=== PATIENT | female | born 1960 | race Caucasian/White ===

== ENCOUNTER 2016-08-09 21:32 | Emergency (ER) | payer OTHER ==
[2016-08-09 21:44] VITALS: BP 153/82
[2016-08-10] MEDS ORDERED: Acetaminophen/Butalbital/Caffeine 325-50-40 MG Tab PO STA (00:05)
--- NOTE | 2016-08-10 00:12 | EDM.PDOC ---
ED HPI HEADACHE COMPLAINT - General Chief Complaint: Neurological Problem Stated Complaint: HEADACHE Time Seen by Provider: 08/09/16 23:41 Source of Information: Reports: Patient, Family (), RN notes reviewed History Limitations: Reports: No limitations - History of Present Illness INITIAL COMMENTS - FREE TEXT/NARRATIVE: The patient states that she developed a headache felt from her forehead, down her face, on and off today, but that it became severe around 19:00 tonight. It is throbbing in character. She has no nausea or vomiting, no photophobia or phonophobia, no visual changes, and no neurologic symptoms, such as tingling, numbness, or weakness. No prior similar headaches. She relates that she was diagnosed with a sinus infection at the [facility] in clinic on 07/23/2016. She was treated with Augmentin for 10 days, and took Mucinex and an [id number] herbal nasal spray called Zylotol. - Related Data Allergies/ADRs: Allergies Allergy/AdvReac Type Severity Reaction Status Date / Time No Known Allergies Allergy Verified 08/09/16 21:40 Home Meds: Home Meds Escitalopram [Lexapro] 20 mg PO DAILY 10/14/13 [History] buPROPion [Wellbutrin] 150 mg PO DAILY 10/14/13 [History] Carisoprodol [Soma] 350 mg PO BEDTIME PRN 03/02/16 [History] Cholecalciferol (Vitamin D3) [Vitamin D3] 2,000 units PO DAILY 03/02/16 [History ] [place]-3 Fatty Acids [[place]ita-3] 2,000 mg PO DAILY 03/02/16 [History] Vitamin B Complex [B Complex] 1 tab PO DAILY 03/02/16 [History] Vitamin E 400 units PO DAILY 03/02/16 [History] Ascorbic Acid [Vitamin C] 1,000 mg PO DAILY 08/09/16 [History] Cetirizine [ZyrTEC] 10 mg PO DAILY 08/09/16 [History] Magnesium Citrate 100 mg PO DAILY 08/09/16 [History] Orphenadrine [Norflex] 1 tab PO Q12H #20 tab.er 08/10/16 [Rx] Past Medical History Gastrointestinal History: Reports: Colon polyp (tubular adenoma) Neurological History: Reports: Other (see below) (Sciatica) Psychiatric History: Reports: Anxiety, Depression - Past Surgical History HEENT Surgical History: Reports: Tonsillectomy GI Surgical History: Reports: Appendectomy, Colonoscopy Female Surgical History: Reports: section (x 2), D&C (x 1) Neurological Surgical History: Reports: C-Spine (ACDF) Musculoskeletal Surgical History: Reports: Other (see below) (Right bunionectomy ) Social & Family History - Tobacco Use Smoking Status *Q: Never Smoker Second Hand Smoke Exposure: No - Alcohol Use Alcohol Use History: Yes Days Per Week of Alcohol Use: 7 Number of Drinks Per Day: 1 Total Drinks Per Week: 7 Alcohol Use Frequency: Socially - Recreational Drug Use Recreational Drug Use: No - Living Situation & Occupation Living situation: Reports: , with spouse, with family (3 kids) 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) ED ROS GENERAL - Review of Systems Review Of Systems: See Below Constitutional: Reports: no symptoms HEENT: Reports: Sinus problem (as per the HPI) Respiratory: Reports: No Symptoms Cardiovascular: Reports: No symptoms Endocrine: Reports: no symptoms GI/Abdominal: Reports: No symptoms : Reports: no symptoms Musculoskeletal: Reports: no symptoms Skin: Reports: no symptoms Neurological: Reports: No Symptoms Psychiatric: Reports: No symptoms Hematologic/Lymphatic: Reports: no symptoms Immunologic: Reports: no symptoms - Physical Exam Exam: See Below Exam Limited By: No limitations General Appearance: alert, WD/WN, no apparent distress Eye Exam: bilateral eye: EOMI, normal inspection, PERRL Ears: normal external exam, normal canal, hearing grossly normal, normal TMs Nose: normal inspection, no blood, other (Mild bilateral nasal mucosal edema. No purulent drainage.) Throat/Mouth: Normal inspection, Normal lips, Normal teeth, Normal gums, Normal oropharynx, Normal voice, No airway compromise Head Exam: atraumatic, normocephalic, scalp tenderness (At the forehead, and at the base of the neck only. Nontender elsewhere.). No: facial swelling, facial tenderness, sinus tenderness Neck: normal inspection, supple, non-tender, full range of motion Respiratory/Chest: no respiratory distress, lungs clear, normal breath sounds, no accessory muscle use, chest non-tender Cardiovascular: normal peripheral pulses, regular rate, rhythm, no edema, no gallop, no JVD, no murmur, no rub GI/Abdominal: normal bowel sounds, soft, non tender, no organomegaly, no distention, no abnormal bruit, no mass Neuro Exam (Abbreviated): alert, oriented, normal cognition, no motor/sensory deficits Back Exam: normal inspection, full range of motion, NT Extremities: normal inspection, normal range of motion, non-tender, no pedal edema, normal capillary refill Psychiatric: normal affect, anxious Skin Exam: Warm, Dry, Intact, Normal color, No rash Course - Vital Signs Last Recorded V/S: Last Vital Signs Temp Pulse 57 L 08/09/16 21:40 Resp 16 08/09/16 21:40 BP 153/82 H 08/09/16 21:40 Pulse Ox 100 08/09/16 21:40 - Orders/Labs/Meds Orders: Active Orders 24 hr Category Date Time Status Head wo Cont [CT] Stat Exams 08/09/16 22:08 Taken Labs: Laboratory Tests 08/10/16 08/10/16 Range/Units 00:18 00:18 WBC 5.11 (3.98-10.04) K/mm3 RBC 4.03 (3.98-5.22) M/mm3 Hgb 12.5 (11.2-15.7) gm/L Hct 36.7 (34.1-44.9) % MCV 91.1 (79.4-94.8) fl MCH 31.0 (25.6-32.2) pg MCHC 34.1 (32.2-35.5) g/dl RDW Std Deviation 41.4 (36.4-46.3) fL Plt Count 177 L (182-369) K/mm3 MPV 10.3 (9.4-12.3) fl Neutrophils % (Manual) 75 H (40-60) % Band Neutrophils % 3 (0-10) % Lymphocytes % (Manual) 16 L (20-40) % Atypical Lymphs % 0 % Monocytes % (Manual) 5 (2-10) % Eosinophils % (Manual) 1 (0.7-5.8) % Basophils % (Manual) 0 L (0.1-1.2) Platelet Estimate Decreased Plt Morphology Comment Normal RBC Morph Comment Normal Sodium 138 (136-145) mEq/L Potassium 4.0 (3.5-5.1) mEq/L Chloride 103 (98-107) mEq/L Carbon Dioxide 25 (21-32) mEq/L Anion Gap 14.0 (5-15) BUN 15 (7-18) mg/dL Creatinine 0.8 (0.55-1.02) mg/dL Est Cr Clr Drug Dosing 79.08 mL/min Estimated GFR (MDRD) > 60 (>60) mL/min BUN/Creatinine Ratio 18.8 H (14-18) Glucose 117 H (74-106) mg/dL Calcium 9.0 (8.5-10.1) mg/dL Total Bilirubin 0.3 (0.2-1.0) mg/dL AST 19 (15-37) U/L ALT 23 (14-59) U/L Alkaline Phosphatase 45 L (46-116) U/L C-Reactive Protein < 0.2 (<1.0) mg/dL Total Protein 7.0 (6.4-8.2) g/dl Albumin 4.0 (3.4-5.0) g/dl Globulin 3.0 gm/dL Albumin/Globulin Ratio 1.3 (1-2) Meds: Medications Discontinued Medications Generic Name Dose Route Start Last Admin Trade Name Freq PRN Reason Stop Dose Admin Acetaminophen/Butalbital/Caffeine 2 tab 08/10/16 00:05 08/10/16 00:15 Fioricet 325-50-40 Mg PO 08/10/16 00:06 2 tab ONETIME STA Administration Orphenadrine Citrate 100 mg 08/10/16 01:59 08/10/16 02:12 Norflex PO 08/10/16 02:00 100 mg ONETIME STA Administration - Radiology Interpretation Free Text/Narrative:: CT of the head without contrast is read by virtual radiology as "No acute intracranial process." Also mentioned is "Sinuses: Unremarkable as visualized. No acute sinusitis." - Re-Assessments/Exams Free Text/Narrative Re-Assessment/Exam: 08/10/16 00:10 The patient's headache appears to be a tension-type headache. She has no symptoms consistent with a migraine-type headache, and while her history is concerning for a sinus-type headache, her physical exam is not consistent with it, and, further, the CT scan of her head finds no evidence of sinusitis. I have ordered blood work to look for evidence of inflammation, and 2 tablets of Fioricet. Of note, the patient's appears to be upset about the wait time. 08/10/16 01:57 Test results discussed with the patient. The blood work does not show any suggestion of infection or inflammation. As above, I suspect that the patient is suffering from a tension-type headache. She reports some improvement in her symptoms following Fioricet. I'm also going to prescribe Norflex, to see if that helps. Departure - Departure Time of Disposition: 01:58 Disposition: Home, Self-Care 01 Condition: fair Clinical Impression: Tension type headache Prescriptions: Orphenadrine [Norflex] 1 tab PO Q12H #20 tab.er Instructions: Tension Headache, [id number] Referrals: Laura Boyd, [facility] [employer] [Primary Care Provider] - Forms: ED Department Discharge Additional Instructions: You were seen in the emergency room tonight for a severe frontal headache. Workup in the ER included blood work and a CT scan of your head. Your entire workup was normal. There is no suggestion of an infection or inflammation. There is no bleeding your head. You do not have sinusitis or a sinus infection. Your symptoms are MOST LIKELY due to a tension-type headache. You have been started on the muscle relaxant Norflex. Take one tablet every 12 hours, as prescribed. You may also take [id number] ibuprofen 2-3 tablets (400-600 mg) every 8 hours, with food, as needed for discomfort. If you are not having significant relief within 2 days, please followup with your PCP, Laura Boyd. If any other problems, please do not hesitate to return to the ER.
[2016-08-10] MEDS ORDERED: Orphenadrine 100 MG Tab.ER PO STA (01:59)
--- NOTE | 2016-08-10 08:18 | CT ---
Head CT Technique: Multiple axial sections through the brain were obtained. Intravenous contrast was not utilized. Comparison: Previous head CT study of 10/14/13 is available. Findings: Several old lacunar infarcts are noted within the basal ganglia. No other abnormal parenchymal densities are seen. No evidence of intracranial hemorrhage. No midline shift or mass effect is seen. Bone window settings were reviewed which show no discrete calvarial abnormality. Visualized sinuses are clear. Impression: 1. Several old lacunar infarcts within the left basal ganglia. 2. No acute intracranial abnormality is seen. Diagnostic code #2
== END 2016-08-10 02:15 | disposition home or self-care (01) ==
LOC: JD.ED 21:32
DX: G44.209 Tension-type headache, unspecified, not intractable (principal); F41.9 Anxiety disorder, unspecified; F32.9 Major depressive disorder, single episode, unspecified; Z79.899 Other long term (current) drug therapy
CPT/HCPCS: 36415; 70450; 70450-26; 80053; 85025; 86140; 99283; 99284-25; A9270; A9270-GY

== ENCOUNTER → 2020-09-18 | Day surgery (SDC) | payer OTHER ==
[~2020-09-18] MED LIST: Lactated Ringers 1,000 ML IV SCH; Lidocaine 1% 4 ML ONE; Lidocaine 1%/Sod Bicarbonate in NS 8.4% 1 ML Syringe IDERM PRN; Propofol 200 MG/20 ML SDV ONE; Sodium Chloride 0.9% 10 ML Syringe FLUSH PRN
--- NOTE | 2020-09-18 07:38 | PCM.PREANE ---
Preanesthetic Assessment - Procedure Proposed Procedure: EGD - Anesthesia/Transfusion/Family Hx Anesthesia History: Prior Anesthesia Without Reaction Family History of Anesthesia Reaction: No Transfusion History: No Prior Transfusion(s) Intubation History: Unknown - Review of Systems General: No Symptoms Pulmonary: No Symptoms Cardiovascular: No Symptoms Gastrointestinal: Other (IBS ) Neurological: No Symptoms Other: Reports: Depression, Anxiety - Physical Assessment NPO Status Date: 09/17/20 NPO Status Time: 22:00 Height: 1.7 m Weight: 67 kg ASA Class: 3 Mental Status: Alert & Oriented x3 Airway Class: Mallampati = 1 Dentition: Reports: Missing Tooth/Teeth (right bottom ) Thyro-Mental Finger Breadths: 3 Mouth Opening Finger Breadths: 5 ROM/Head Extension: Full Lungs: Clear to Auscultation, Normal Respiratory Effort Cardiovascular: Regular Rate, Regular Rhythm - Allergies Allergies/Adverse Reactions: Allergies Allergy/AdvReac Type Severity Reaction Status Date / Time No Known Allergies Allergy Verified 09/17/20 10:37 - Blood Blood Available: No - Anesthesia Plan Pre-Op Medication Ordered: None - Acknowledgements Anesthesia Type Planned: MAC Pt an Appropriate Candidate for the Planned Anesthesia: Yes Alternatives and Risks of Anesthesia Discussed w Pt/Guardian: Yes Pt/Guardian Understands and Agrees with Anesthesia Plan: Yes PreAnesthesia Questionnaire HEENT History: Reports: Allergic Rhinitis, Impaired Vision Other HEENT History: Wears glasses Cardiovascular History: Reports: None Respiratory History: Reports: None Gastrointestinal History: Reports: Colon Polyp, Other (See Below) Other Gastrointestinal History: tubular adenoma Genitourinary History: Reports: None 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 OB/BYN History: Other Musculoskeletal History: muscle spasms, left shoulder pain, myalgia, trapezius strain, bunion, muscle spasm Neurological History: Psychiatric History: Reports: Anxiety, Depression, Other (See Below) Other Psychiatric History: ETOH abx Endocrine/Metabolic History: Reports: None Hematologic History: Reports: Other (See Below) Other Hematologic History: abnormal WBC Immunologic History: Reports: None Oncologic (Cancer) History: Reports: Colon Other Oncologic History: tubular adenoma Dermatologic History: Reports: Other (See Below) Other Dermatologic History: atypical pigmented skin lesion - Infectious Disease History Infectious Disease History: Reports: None - Past Surgical History HEENT Surgical History: Reports: Tonsillectomy Cardiovascular Surgical History: Reports: None Respiratory Surgical History: Reports: None GI Surgical History: Reports: Appendectomy, Colonoscopy Female Surgical History: Reports: Section, D&C Male Surgical History: Reports: None Endocrine Surgical History: Reports: None Neurological Surgical History: Reports: C-Spine, Other (See Below) Other Neurological Surgeries/Procedures: neck fracture with surgery Musculoskeletal Surgical History: Reports: Other (See Below) Other Musculoskeletal Surgeries/Procedures:: foot surgery, neck surgery Oncologic Surgical History: Reports: None Dermatological Surgical History: Reports: None - SUBSTANCE USE Tobacco Use Status *Q: Never Tobacco User Days Per Week of Alcohol Use: 7 Number of Drinks Per Day: 2 Total Drinks Per Week: 14 Recreational Drug Use History: No - HOME MEDS Home Medications: Home Meds Escitalopram [Lexapro] 20 mg PO DAILY 10/14/13 [History] Carisoprodol [Soma] 350 mg PO QID PRN 03/02/16 [History] Cholecalciferol (Vitamin D3) [Vitamin D3] 2,000 units PO DAILY 03/02/16 [History] Vitamin B Complex [B Complex] 1 tab PO DAILY 03/02/16 [History] Ascorbic Acid [Vitamin C] 500 mg PO DAILY 08/09/16 [History] Fish Oil/[place]-3 Fatty Acids [Fish Oil 1,000 MG] 1 gm PO DAILY 09/17/20 [History] Vitamin E 100 unit PO DAILY 09/17/20 [History] buPROPion HCL [Wellbutrin Xl] 150 mg PO DAILY 09/17/20 [History] buPROPion HCL [Wellbutrin Xl] 300 mg PO DAILY 09/17/20 [History] - CURRENT (IN HOUSE) MEDS Current Meds: Current Medications Lactated Ringer's (Ringers, Lactated) 1,000 mls @ 125 mls/hr IV ASDIRECTED BARB Stop: 09/18/20 23:00 Lidocaine/Sodium Bicarbonate (Lidocaine 1%/Sod Bicarbonate In Ns 8.4% 1 Ml Syringe) 0.25 ml IDERM ONETIME PRN PRN Reason: Prior to IV Start Stop: 09/18/20 18:00 Sodium Chloride (Sodium Chloride 0.9% 10 Ml Syringe) 10 ml FLUSH ASDIRECTED PRN PRN Reason: Keep Vein Open Stop: 09/18/20 18:00
--- NOTE | 2020-09-18 08:08 | PCM.PRNOTE ---
- Free Text/Narrative Note: Date: 09/18/2020 Procedure: diagnostic esophagogastroduodenoscopy Indication: bloating Endoscopist: Elliot Rahman MD Findings: no visible abnormalities. Biopsies of duodenal, antral, and esophageal mucosa obtained with cold biopsy forceps. Detailed Report: The patient was taken to the endoscopy suite and placed in left lateral decubitus position. Timeout was performed and monitored anesthesia care was initiated. A bite-block was placed, and the endoscope was inserted into the mouth. The scope was advanced to the second portion of the duodenum with ease. Duodenal mucosa appeared normal. A sample of duodenal mucosa was obtained with cold forceps. The scope was then withdrawn into the stomach. The pyloric channel appeared wide, but was otherwise unremarkable. A biopsy of gastric antral mucosa was obtained. The gastric mucosa appeared normal, there was no lesion at the incisura. On retroflexion, no hiatal hernia was appreciated. The scope was withdrawn into the distal esophagus. The Z-line appeared normal. Biopsies were obtained near the gastroesophageal junction and a bit more proximally to sample esophageal mucosa. Air was suctioned from the stomach prior to withdrawal of the scope. The patient tolerated the procedure well.
--- NOTE | 2020-09-18 08:18 | PCM48HPAN ---
Post Anesthesia Note - EVALUATION WITHIN 48HRS OF ANESTHETIC Vital Signs in Normal Range: Yes Patient Participated in Evaluation: Yes Respiratory Function Stable: Yes Airway Patent: Yes Cardiovascular Function Stable: Yes Hydration Status Stable: Yes Pain Control Satisfactory: Yes Nausea and Vomiting Control Satisfactory: Yes Mental Status Recovered: Yes Vital Signs: Last Vital Signs Temp 36.4 C 09/18/20 07:45 Pulse 56 L 09/18/20 07:45 Resp 14 09/18/20 07:45 BP 122/81 09/18/20 07:45 Pulse Ox 95 09/18/20 07:45
[2020-09-18 10:05] VITALS: BP 127/80; PULSE 62
== END | disposition home or self-care (01) ==
LOC: JD.SDS 07:01
PROVIDERS: ATTEND Surgery
DX: R14.0 Abdominal distension (gaseous) (principal); K31.89 Other diseases of stomach and duodenum; K22.8 Other specified diseases of esophagus; R19.4 Change in bowel habit; Z91.018 Allergy to other foods; Z79.899 Other long term (current) drug therapy
CPT/HCPCS: 43239; J2704; J7120; 00731

== ENCOUNTER 2022-09-02 20:47 | Emergency (ER) | payer OTHER ==
[2022-09-02 21:30] VITALS: BP 161/79; PULSE 53
[2022-09-02] MEDS ORDERED: Ondansetron 4 MG/2 ML SDV IVPUSH ONE (21:30)
[2022-09-02] MEDS ORDERED: HYDROmorphone 1 MG/ML Syringe IVPUSH ONE ×3 (21:30→23:02)
[2022-09-02] MEDS ORDERED: Take Home: Acetaminophen/oxyCODONE 325-5 MG, 5 Tab Pack PO ONE (23:39)
[2022-09-02] MEDS ORDERED: Acetaminophen/oxyCODONE 325-5 MG Tab PO ONE (23:52)
== END 2022-09-03 00:05 | disposition home or self-care (01) ==
LOC: JD.ED 20:47
DX: S42.251A Displaced fracture of greater tuberosity of right humerus, initial encounter for closed fracture (principal); S42.211A Unspecified displaced fracture of surgical neck of right humerus, initial encounter for closed fracture; S42.261A Displaced fracture of lesser tuberosity of right humerus, initial encounter for closed fracture; W18.30XA Fall on same level, unspecified, initial encounter
CPT/HCPCS: 73000-26-RT; 73000-RT; 73020-26-RT; 73020-RT; 73200-26-RT; 73200-RT; 96374; 96375; 99284; 99284-25; J1170; J2405

== ENCOUNTER 2023-03-24 08:44 | Day surgery (SDC) | payer OTHER ==
[2023-03-24] MEDS ORDERED: Lactated Ringers 1,000 ML IV SCH (10:45)
[2023-03-24 13:22] VITALS: BP 112/66; PULSE 64
== END 2023-03-24 12:10 | disposition home or self-care (01) ==
LOC: JD.SDS 08:44
PROVIDERS: ATTEND Specialist
DX: D50.9 Iron deficiency anemia, unspecified (principal); K31.89 Other diseases of stomach and duodenum; F41.9 Anxiety disorder, unspecified; F32.A Depression, unspecified; I10 Essential (primary) hypertension; E78.00 Pure hypercholesterolemia, unspecified; Z79.899 Other long term (current) drug therapy
CPT/HCPCS: 43239; 45378; J7120; 00813; J2704; J3010; J3490